=== PATIENT | female | born 1955 | race Caucasian/White ===

== ENCOUNTER → 2022-04-18 | Outpatient (CLI) | payer OTHER ==
[~2022-04-18] MED LIST: ALPR.25; Aspir 8181 MG; CYAN100; ERGO400; METO50ER; TELM40; THYR60
[2022-04-19 10:51] LABS: Stool Occult Bld Immuno 1 Negative (NEGATIVE)
== END | disposition home or self-care (01) ==
LOC: LAB SHORT 10:00 → LAB 10:00 → LAB SHORT 11:09 → EDSTATUS 13:18
PROVIDERS: Family Medicine
DX: Z12.11 Encounter for screening for malignant neoplasm of colon (principal)
CPT/HCPCS: G0328

== ENCOUNTER 2023-01-30 11:13 | Day surgery (SDC) | payer OTHER ==
[2023-01-26 13:21] LABS: BASOPHILS ABSOLUTE AUTO 0.04 K/mm3 (0.00-0.23); BASOPHILS PERCENT AUTO 1 % (0-2); EOSINOPHILS ABSOLUTE AUTO 0.09 K/mm3 (0.00-0.68); EOSINOPHILS PERCENT AUTO 2 % (0-6); Hematocrit 44.7 % (33.0-51.0); Hemoglobin 14.8 g/dL (11.5-16.0); IMMATURE GRAN ABSOLUTE AUTO 0.02 K/mm3 (0.00-0.10); IMMATURE GRAN PERCENT AUTO 0 % (0-1); LYMPHOCYTES ABSOLUTE AUTO 1.88 K/mm3 (0.84-5.20); LYMPHOCYTES PERCENT AUTO 32 % (21-46); MONOCYTES ABSOLUTE AUTO 0.58 K/mm3 (0.16-1.47); MONOCYTES PERCENT AUTO 10 % (4-13); Mean Corpuscular HGB 29.6 pg (26.0-34.0); Mean Corpuscular HGB Conc 33.1 g/dL (31.5-36.5); Mean Corpuscular Volume 89 fL (80-100); Mean Platelet Volume 10.4 fL (9.1-12.4); NEUTROPHILS ABSOLUTE AUTO 3.29 K/mm3 (1.96-9.15); NEUTROPHILS PERCENT AUTO 56 % (41-73); Platelet Count 244 K/mm3 (150-400); RDW Standard Deviation 42.2 fL (35.1-46.3)
[2023-01-26 14:00] LABS: Bun/Creatinine Ratio 15.9 (12.0-20.0); Calcium, Blood 9.7 mg/dL (8.5-10.1); Creatinine, Blood 0.82 mg/dL (0.40-1.00)
[~2023-01-30] VITALS: Ht 185.4 cm; Wt 92.6 kg
[2023-01-30] MEDS ORDERED: OMEP20ER (11:54)
--- NOTE | 2023-01-30 13:15 | NUR ---
01/30/23 1315 Tiffanie Fajardo PATIENT VOIDED ON WAY BACK TO OR.
[2023-01-30 13:55] VITALS: BP 120/60
--- NOTE | 2023-01-30 15:04 | NUR ---
01/30/23 1504 [address] IN PACU DR CONTRERAS CONSULTED D/T THREE LEAD EKG RHYTHM, DR CONTRERAS STATES RHYTHM IS SAME IN PROCEDURE AND OK TO DISCHARGE IF NO SYMPTOMS OF CHEST PAIN, SHORTNESS OF BREATH, OR OTHER CARDIAC SYMPTOMS. PATIENT REPORTS NO CARDIAC SYMPTOMS AND EXPRESSES READINESS TO GO HOME. IV DISCONTINUED, SITE ASSESSMENT COMPLETE AND WNL
== END 2023-01-30 15:00 | disposition home or self-care (01) ==
LOC: ORSCSDS 11:13
PROVIDERS: Obstetrics & Gynecology
PROC: 0UB98ZZ Excision of Uterus, Via Natural or Artificial Opening Endoscopic (ICD-10-PCS; principal; 2023-01-30 12:30)
DX: R93.89 Abnormal findings on diagnostic imaging of other specified body structures (principal); N84.0 Polyp of corpus uteri; I10 Essential (primary) hypertension; E78.5 Hyperlipidemia, unspecified; E03.9 Hypothyroidism, unspecified; J45.909 Unspecified asthma, uncomplicated; Z79.899 Other long term (current) drug therapy; M79.7 Fibromyalgia; I25.2 Old myocardial infarction; D50.9 Iron deficiency anemia, unspecified; E66.9 Obesity, unspecified; Z68.38 Body mass index [BMI] 38.0-38.9, adult
CPT/HCPCS: 36415; 80048; 85025; 88305; J1100; J1885; J2250; J2405; J2704; J3010; J7120